=== PATIENT | female | born 1960 | race Caucasian/White ===

== ENCOUNTER 2020-12-15 13:07 | Emergency (ER) | payer BC, OTHER ==
[2020-12-15 13:58] VITALS: BP 164/94; PULSE 84
--- NOTE | 2020-12-15 14:11 | EDM.PDOC ---
ED HPI GENERAL MEDICAL PROBLEM - General Chief Complaint: Lower Extremity Injury/Pain Stated Complaint: FOOT INJURY Time Seen by Provider: 12/15/20 13:09 Source of Information: Reports: Patient History Limitations: Reports: No Limitations - History of Present Illness INITIAL COMMENTS - FREE TEXT/NARRATIVE: The patient presents with right foot pain. She was walking into work and she stepped on the edge of the rug and twisted her right foot and ankle. She continued to work and there was lots of swelling. She continues to have some pain and swelling. The swelling has improved. Onset: Sudden Duration: Week(s): (1) Location: Reports: Lower Extremity, Right (foot) Quality: Reports: Sharp Severity: Mild Improves with: Reports: Immobilization Worsens with: Reports: Movement Context: Reports: Trauma (twisted her foot and ankle) Right Feet Pain Score (Numeric/FACES): 5 - Related Data Allergies Allergy/AdvReac Type Severity Reaction Status Date / Time Sulfa (Sulfonamide Allergy Itching Verified 12/15/20 13:24 Antibiotics) Home Meds: Home Meds Calcium/Magnesium/Vit D3 [Calcium 500 MG] 1 tab PO DAILY 09/15/15 [History] [place]-3 Fatty Acids [Fish Oil] 500 mg PO DAILY 09/15/15 [History] 93/Iron/Folate 9/Dha [[place] Dha Softgel] 1 cap PO DAILY 09/15/15 [History] Vitamin E (Dl,Tocopheryl Acet) [Vitamin E] 1 tab PO DAILY 09/15/15 [History] Past Medical History HEENT History: Reports: Impaired 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: - Past Surgical History GI Surgical History: Reports: Appendectomy Social & Family History - Tobacco Use Tobacco Use Status *Q: Never Tobacco User Review of Systems - Review of Systems Review Of Systems: See Below Constitutional: Reports: No Symptoms Eyes: Reports: No Symptoms Ears: Reports: No Symptoms Nose: Reports: No Symptoms Mouth/Throat: Reports: No Symptoms Respiratory: Reports: No Symptoms Cardiovascular: Reports: No Symptoms GI/Abdominal: Reports: No Symptoms Genitourinary: Reports: No Symptoms Musculoskeletal: Reports: Other (left foot pain) ED EXAM, GENERAL - Physical Exam Exam: See Below Exam Limited By: No Limitations General Appearance: Alert, No Apparent Distress Ears: Normal External Exam Nose: Normal Inspection Head: Atraumatic, Normocephalic Neck: Normal Inspection Respiratory/Chest: No Respiratory Distress Extremities: Other (Pain upon palpation to the left lateral foot near the proximal 5th metatarsal. Mild edema noted. Good sensation and pulses distally.) Course - Vital Signs Last Recorded V/S: Last Vital Signs Temp 97.1 F 12/15/20 13:57 Pulse 84 12/15/20 13:57 Resp 18 12/15/20 13:57 BP 164/94 H 12/15/20 13:57 Pulse Ox 100 12/15/20 13:57 - Orders/Labs/Meds Orders: Active Orders 24 hr Category Date Time Status Foot Comp Min 3V Rt [CR] Stat Exams 12/15/20 13:09 Taken Durable Medical Equipment for Discharge [DME for Oth 12/15/20 14:00 Ordered Discharge] [COMM] Stat - Re-Assessments/Exams Free Text/Narrative Re-Assessment/Exam: 12/15/20 14:08 I ordered an x-ray and she has a proximal 5th metatarsal fracture. I will get her in a walking boot and she does not want crutches. I will have her follow up with Dr Lugo. Departure - Departure Time of Disposition: 14:10 Disposition: Home, Self-Care 01 Condition: Good Clinical Impression: Nondisplaced fracture of fifth right metatarsal bone Qualifiers: Encounter type: initial encounter Fracture type: closed Qualified Code(s): S92.354A - Nondisplaced fracture of fifth metatarsal bone, right foot, initial encounter for closed fracture - Discharge Information *PRESCRIPTION DRUG MONITORING PROGRAM REVIEWED*: Not Applicable *COPY OF PRESCRIPTION DRUG MONITORING REPORT IN PATIENT KEY[place]: Not Applicable Referrals: Figueroa Lugo MD [Physician] - 1 Week Additional Instructions: Ice your foot for 15 minutes 3 times per day for 2 days. Try to elevate your foot if there is some selling. Take tylenol or motrin as needed for pain. Follow up with Dr Lugo within a week. Wear the walking boot for a couple weeks at least. Sepsis Event Note (ED) - Evaluation Sepsis Screening Result: No Definite Risk - Focused Exam Vital Signs: Vital Signs Temp Pulse Resp BP Pulse Ox 12/15/20 13:57 97.1 F 84 18 164/94 H 100 - My Orders Last 24 Hours: My Active Orders 12/15/20 13:09 Foot Comp Min 3V Rt [CR] Stat 12/15/20 14:00 Durable Medical Equipment for Discharge [DME for Discharge] [COMM] Stat - Assessment/Plan Last 24 Hours: My Active Orders 12/15/20 13:09 Foot Comp Min 3V Rt [CR] Stat 12/15/20 14:00 Durable Medical Equipment for Discharge [DME for Discharge] [COMM] Stat
--- NOTE | 2020-12-15 14:56 | CR ---
Right foot: 4 views of the right foot were obtained. Comparison: No prior foot study is available. Slightly displaced fracture is seen within the base of the right fifth metatarsal. Bunion deformity is noted within the first toe. Plantar spur is present. No other acute abnormality is appreciated. Impression: 1. Slightly displaced fracture within the base of the fifth metatarsal. 2. Other findings which are believed to be nonacute. Diagnostic code #3
== END 2020-12-15 14:19 | disposition home or self-care (01) ==
LOC: JD.ED 13:07
DX: S92.354A Nondisplaced fracture of fifth metatarsal bone, right foot, initial encounter for closed fracture (principal); Z88.2 Allergy status to sulfonamides; X50.1XXA Overexertion from prolonged static or awkward postures, initial encounter; Y93.01 Activity, walking, marching and hiking
CPT/HCPCS: 73630-26-RT; 73630-RT; 99283-25